=== PATIENT | female | born 1985 | race Caucasian/White ===

== ENCOUNTER 2020-04-21 12:02 | Emergency (ER) | payer MEDICAID, SELFPAY ==
[2020-04-21 12:14] VITALS: BP 126/65; PULSE 68; RESP 18; TEMP 36.5; O2SAT 98
--- NOTE | 2020-04-21 12:23 | W.ED.GENAD ---
Discharge Plan Disposition Patient Disposition: HOME Condition: Good Discharge Details Chief Complaint: Laceration Clinical Impression: Puncture wound, Ankle sprain Primary Care Provider: None,None ED Provider: Quynh Meeks Home Meds and New Rx's Prescriptions: New clindamycin HCl 150 mg capsule 450 mg PO TID 5 Days Qty: 45 RF: 0 Continued methadone 10 mg/5 mL Solution 94 mg PO DAILY RF: 0 Discharge Instructions Instructions: Ankle Sprain (ED), Puncture Wound (ED) Additional Instructions: X-rays are without fracture, dislocation or foreign body. I am concerned for risk of infection. Please take the antibiotics as prescribed. Even if symptoms improve, please take entire course. Please take probiotic with the antibiotic. I would like you to be reevaluated primary care at the end of the week. Regarding her ankle, again there is no evidence of fracture. However, you are tender over ligament suggestive of sprain. Please continue to wear brace. Encourage rest, ice, elevation. Tylenol and/or ibuprofen as needed for discomfort. If you develop fever/chills, increased pain, discharge or new/worsening symptom please seek care urgently once again. Discharge Data Discharge Date/Time-TO BE ENTERED AT DEPARTURE: 04/21/20 13:55 Medical Decision Making Patient is a pleasant 34-year-old female presents today with chief complaint of right heel pain and right ankle pain. She reports that [place] animal. Believes that it may have been a fish. 3 prongs of bone went into the patient's heel. States that she continues to have persistent pain. She denies any fevers or chills. No discharge. Patient does not believe she is up-to-date on tetanus. She also reports that she suffered a lateral ankle injury 1 week ago when she fell. Patient is status post tubal ligation. On exam, patient is resting comfortably. She does have 3 very small punctate lesions in the heel consistent with her history. No erythema, warmth, drainage. I am unable to palpate any foreign body or express any fluid from these areas. Sensation is intact. 2+ distal pulses. No pain elsewhere about the foot. She is also endorsing pain on the lateral malleolus as well as of the ATFL. Will obtain x-ray of the calcaneus as well as ankle. Will update tetanus. X-ray reviewed by radiologist: FINDINGS: Three views of the ankle and three views of the heel were obtained. The ankle mortise is well maintained. There is small ossific or calcific density seen adjacent to the medial aspect of the talus, possibility of a small chip or avulsion fracture is raised, correlation the exact site is requested. Otherwise the bones of the ankle appear intact. No fracture seen involving the calcaneus Patient does not have pain over the medial aspect of the ankle. Did not feel that the calcific density noted on the x-ray correlates with an acute injury today. Patient I did discuss findings on the x-ray. Again, at this point there is no evidence of a foreign body in the heel. I plan to place patient on antibiotics for this. She does have anaphylactic reaction to penicillins. Regard to the ankle, patient did have significant pain over the ATFL. We will place her in a lace up ankle brace. Encourage rest, ice, elevation. Tylenol and ibuprofen as needed for discomfort. Patient does not have a local primary care, is new to the area. I referred for primary care follow-up. Patient was given return precautions. All of her questions and concerns were addressed and she is in agreement this plan. HPI General Mode of arrival: ambulatory. Date/Time Provider Initiated Documentation: 04/21/20 12:23. Limitations to Documentation: no limitations. Information obtained by: patient and RN notes reviewed. History of Present Illness 34 year old F presents to the emergency department with the chief complaint of Right foot puncture wound and right ankle pain, described as moderate, with intensity rated at 6. Quality is described as aching, and is localized to the right and lower extremity. Patient reports no radiation. Patient started experiencing this day(s) (1) and it has been constant. Immobilization improves symptom(s), Movement worsens symptoms . Patient notes no other symptoms.. Patient did receive the following treatments prior to arrival, none Related Data Home Medications Medication Instructions Recorded Confirmed clindamycin HCl 450 mg PO TID 5 Days #45 cap 04/21/20 methadone 94 mg PO DAILY 04/21/20 04/21/20 Previous Rx's Medication Instructions Recorded clindamycin HCl 450 mg PO TID 5 Days #45 cap 04/21/20 Allergies Allergy/AdvReac Type Severity Reaction Status Date / Time Penicillins Allergy Anaphylaxsi Unverified 04/21/20 12:16 s General Stated Complaint: Laceration DESIREE: 4 Review of Systems Constitutional Constitutional: Reports as per HPI, Denies chills, Denies fever(s), Denies headache(s) and Denies weakness ENT Ears, Nose, Mouth, and Throat: Denies headache(s) Cardiovascular Cardiovascular: Reports as per HPI Respiratory Respiratory: Reports as per HPI and Denies cough Musculoskeletal Musculoskeletal: Reports as per HPI and Denies tingling Integumentary/Breasts Skin/Breast: Reports as per HPI, Denies rash and Reports wounds Neurologic Neurologic: Reports as per HPI, Denies headache(s), Denies tingling, Denies paresthesias and Denies weakness [facility] Social History Smoking/Tobacco Use Status: Current every day Alcohol Intake: never Substance use type: former substance user and marijuana Do you feel safe at home: Yes Do you feel safe in your relationship?: Yes Exam Const General: cooperative, healthy appearing, comfortable, no acute distress, well developed and well groomed Nutritional Appearance: average body habitus and well nourished Orientation: alert and awake Resp Effort & Inspection: normal respiratory effort, able to speak in complete sentences and no respiratory distress Cardio Rate: regular rate Rhythm: regular rhythm Skin Trauma: puncture Neuro General: patient alert and patient awake Cognition: normal cognition Speech: speech normal Gait: normal gait Motor: muscle tone normal throughout Sensory Exam: no sensory deficits noted Extrem Right lower extremity: full ROM, normal capillary refill, no joint enlargement, knee Details: normal to inspection and normal ROM; no tenderness (No pain over the proximal fibular head or neck) and no swelling, lower leg, ankle Details: normal to inspection, tenderness Location: of the lateral malleolus and of the anterior talofibular ligament; not of the achilles tendon, no edema, normal ROM and ecchymosis (Lateral malleolus); no swelling, no unusual warmth, no abrasions, no lacerations and no crepitus and foot Details: normal capillary refill, normal to inspection, tenderness (In the heel is drawn below), toes with normal ROM, no edema, vascular exam Details: dorsalis pedis pulse present, posterior tibial pulse present and normal capillary refill and tendon exam Details: active flexion normal and active extension normal; no unusual warmth, no ecchymosis and no crepitus; abnormal to inspection and no edema Ankle/foot/toe images: 1. Patient very small puncture wounds and alignments just drawn. Minimal edema. No swelling. No discharge. No palpable foreign body. Psych Appearance: grossly normal and well kempt Mental Status: mental status grossly normal Speech and Movement: speech and movement normal Course Vital Signs Vital signs: Vital Signs Temperature 36.5 C 04/21/20 12:14 Pulse 68 04/21/20 12:14 Respiratory Rate 18 04/21/20 12:14 Blood Pressure 126/65 04/21/20 12:14 Pulse Oximetry 98 04/21/20 12:14 Temperature 36.5 C 04/21/20 12:14 Temperature Source Skin 04/21/20 12:14 Pulse 68 04/21/20 12:14 Respiratory Rate 18 04/21/20 12:14 Respiratory Effort Non-Labored 04/21/20 12:18 Blood Pressure 126/65 04/21/20 12:14 Blood Pressure Position Sitting 04/21/20 12:14 Pulse Oximetry 98 04/21/20 12:14 Oxygen Delivery Method Room Air 04/21/20 12:14 Oxygen Flow Rate 0 04/21/20 12:14 Pain Level 6 04/21/20 12:14
--- NOTE | 2020-04-21 12:45 | DI.RAD_ITS ---
EXAM: XR ANKLE RT COMPLETE CLINICAL HISTORY: fell one week ago TECHNIQUE: COMPARISON: CR XR HEEL RT OS CALCIS from 04/21/2020 FINDINGS: Three views of the ankle and three views of the heel were obtained. The ankle mortise is well mainta ined. There is small ossific or calcific density seen adjacent to the medial aspect of the talus, po ssibility of a small chip or avulsion fracture is raised, correlation the exact site is requested. O therwise the bones of the ankle appear intact. No fracture seen involving the calcaneus IMPRESSION:
--- NOTE | 2020-04-22 14:21 | CMPROGNOTE_ITS ---
- If Service Date Differs Date of service: 04/22/20 Time of Service: 14:21 Care Management Progress Note At the request of ED provider, FABIANA coordinates a referral to Tonia Prado aprn, [facility], of [facility] to assist patient in establishing care with a local PCP. FABIANA also telephones Ada to inquire as to her health insurance. Ada advises she needs to transfer her [place] Medicaid to [place] but has not done so yet. CM makes a referral to [employer] to enlist their help in transferring the insurance from one state to the other.
== END 2020-04-21 13:55 | disposition home or self-care (01) ==
PROVIDERS: Emergency Provider Physician Assistant
DX: S91.331A Puncture wound without foreign body, right foot, initial encounter (principal); W26.8XXA Contact with other sharp object(s), not elsewhere classified, initial encounter; S93.491A Sprain of other ligament of right ankle, initial encounter
CPT/HCPCS: 29515; 90471; 99284; 73610; 73650; L1902

== ENCOUNTER 2021-03-30 08:53 | Emergency (ER) | payer MEDICAID, SELFPAY ==
[2021-03-30 08:55] VITALS: BP 118/55; PULSE 75; TEMP 36.9; O2SAT 98
--- NOTE | 2021-03-30 09:15 | W.ED.GENAD ---
Discharge Plan Disposition Patient Disposition: HOME Condition: Improving Discharge Details Clinical Impression: Alveolar osteitis Primary Care Provider: None,None ED Provider: Jatinder Sandoval Home Meds and New Rx's Prescriptions: New clindamycin HCl 300 mg capsule 300 mg PO TID 7 Days Qty: 21 RF: 0 Continued methadone 10 mg/5 mL Solution 104 mg PO DAILY RF: 0 ibuprofen 800 mg Tablet 800 mg PO Q8H PRNRF: 0 acetaminophen [Tylenol Extra Strength] 500 mg Tablet 1,000 mg PO QID PRNRF: 0 Discharge Instructions Instructions: Dry Socket (ED) Additional Instructions: May apply pressure with a wet teabag to area, may apply ice to the jaw. Take antibiotics as prescribed. Continue Tylenol and/or ibuprofen as well as your prescribed methadone. Take clindamycin as prescribed. I recommend you take an [id number] probiotic or live culture yogurt once daily while on this medication. As discussed, please follow-up with your dental team on Wednesday for recheck. Gauze packing was placed in your dry socket today. Return to the ER for any acute concerns. Medical Decision Making 35-year-old female presents after having 2 teeth extracted 1 upper right, one lower right on . Now with right lower jaw pain extending to her ear since yesterday. No fever or drooling, controlling secretions, no change to voice. She does appear to have dry socket on examination. Dental block of the right inferior alveolar nerve was performed, the socket was packed with gauze, patient placed on antibiotics, and we will have her follow-up with her dental team on Wednesday for recheck. HPI General Mode of arrival: ambulatory. Date/Time Provider Initiated Documentation: 03/30/21 08:53. Limitations to Documentation: no limitations. Information obtained by: patient. History of Present Illness 35 year old F presents to the emergency department with the chief complaint of Right lower jaw pain after dental extraction , described as moderate and severe, Quality is described as dull and constant, and is localized to the mouth and right. Patient reports no radiation. Patient started experiencing this day(s) and it has been constant. No relieving factors improve symptom(s), No exacerbating factors reported . Patient did receive the following treatments prior to arrival, none Related Data Home Medications Medication Instructions Recorded Confirmed methadone 104 mg PO DAILY 04/21/20 03/30/21 acetaminophen [Tylenol Extra 1,000 mg PO QID PRN 03/30/21 03/30/21 Strength] clindamycin HCl 300 mg PO TID 7 Days #21 cap 03/30/21 ibuprofen 800 mg PO Q8H PRN 03/30/21 03/30/21 Previous Rx's Medication Instructions Recorded clindamycin HCl 300 mg PO TID 7 Days #21 cap 03/30/21 Allergies Allergy/AdvReac Type Severity Reaction Status Date / Time Penicillins Allergy Anaphylaxsi Unverified 03/30/21 09:01 s General Stated Complaint: DentalOral DESIREE: 5 Review of Systems Narrative: No drooling, no change to voice, able to take oral medicines including Tylenol and methadone. No fever. 6 systems reviewed and otherwise negative [facility] Social History Smoking/Tobacco Use Status: Current every day Tobacco Type: cigarettes Smoking risk assessment performed?: Yes Alcohol Intake: never Drug use: Daily Substance use type: former substance user and marijuana Do you feel safe at home: Yes Do you feel safe in your relationship?: Yes Exam Narrative Exam Narrative: GEN: awake, alert, anxious HEAD: Normocephalic, atraumatic ENT: Mucous membranes moist, oropharynx partially edentulous. Appears to be dry socket right lower mandible, no fluctuance, no buccal or lingual swelling EYES: PERRL, EOMI NECK: Full ROM, no HEATH, no menigismus CHEST/RESP: Nontender, normal respiratory effort EXT: Full ROM, no edema, no rash Neuro: Grossly normal neurologic exam, conversant, interactive. Psych: Speech fluent, thoughts congruent, affect normal Course Vital Signs Vital signs: Vital Signs Temperature 36.9 C 03/30/21 08:55 Pulse 75 03/30/21 08:55 Blood Pressure 118/55 L 03/30/21 08:55 Pulse Oximetry 98 03/30/21 08:55 Temperature 36.9 C 03/30/21 08:55 Temperature Source Temporal Artery Scan 03/30/21 08:55 Pulse 75 03/30/21 08:55 Respiratory Effort Non-Labored 03/30/21 08:59 Blood Pressure 118/55 L 03/30/21 08:55 Blood Pressure Position Sitting 03/30/21 08:55 Pulse Oximetry 98 03/30/21 08:55 Oxygen Delivery Method Room Air 03/30/21 08:55 Oxygen Flow Rate 0 03/30/21 08:55 Pain Level 10 03/30/21 08:55 Procedures Nerve Block Nerve Block 1: Time out performed: Yes Local Anesthetic: Lidocaine 1% and Bupivicaine 0.25% Side: right Intraoral Nerve Block: inferior alveolar Procedure Successful: Yes Patient Tolerated Procedure: well
[2021-03-30] MEDS: Ibuprofen 800 MG TAB (09:16)
[2021-03-30] MEDS: Clindamycin 300 MG CAP PO (09:35)
== END 2021-03-30 09:39 | disposition home or self-care (01) ==
PROVIDERS: Emergency Provider Emergency Medicine
DX: M27.3 Alveolitis of jaws (principal)
CPT/HCPCS: 64400